=== PATIENT | male | born 1950 | race Caucasian/White ===

== ENCOUNTER 2018-07-10 09:06 | Outpatient (CLI) | payer BC ==
[2018-07-10 10:16] LABS: Hemoglobin 15.7 g/dL (14.0-18.0); Mean Corpuscular HGB CONC 33.6 g/dL (32.0-36.0); Mean Corpuscular Hemoglobin 30.8 pg (27.0-31.0); Mean Corpuscular Volume 91.6 fL (78.0-98.0); Mean Platelet Volume 8.6 fL (7.4-10.4); Platelet Count 134 thou/uL (130-400); RBC Distribution Width 12.3 % (11.5-14.5); Red Blood Cell (RBC) Count 5.11 mill/uL (4.70-6.10); White Blood Cell (WBC) Count 4.9 thou/uL (4.8-10.8)
[2018-07-10 11:05] LABS: Anion Gap 12 mmol/L (10-20); BUN (Urea Nitrogen) 17 mg/dL (8.4-25.7); Calc. Creatinine Clearance 0 mL/min (70-130); Calcium 9.9 mg/dL (7.8-10.44); Carbon Dioxide 24 mmol/L (23-31); Chloride 110 mmol/L (98-107); Estimated GFR-MDRD 66; Glucose 117 mg/dL (80-115); Potassium 4.7 mmol/L (3.5-5.1); Sodium 141 mmol/L (136-145)
== END 2018-07-10 09:07 | disposition home or self-care (01) ==
LOC: LABBT 09:06
PROVIDERS: ATTEND Orthopaedic Surgery
DX: Z01.812 Encounter for preprocedural laboratory examination (principal); M75.101 Unspecified rotator cuff tear or rupture of right shoulder, not specified as traumatic; M75.41 Impingement syndrome of right shoulder
CPT/HCPCS: 80048; 85027

== ENCOUNTER 2018-07-12 06:45 | Day surgery (SDC) | payer BC ==
[2018-07-10 09:25] VITALS: BMI 24.1
[2018-07-12] MEDS ORDERED: CEFAZOLIN/Water 2 GM/20 ML SYRINGE ONE (07:20)
[2018-07-12] MEDS ORDERED: Fentanyl 100 MCG/2 ML VIAL ONE ×2 (07:43→09:43)
[2018-07-12] MEDS ORDERED: Midazolam HCl 2 mg/2 ml Vial ONE (07:43)
[2018-07-12] MEDS ORDERED: Promethazine HCl 25 MG/ML VIAL IM PRN (07:54)
[2018-07-12] MEDS ORDERED: Ketorolac Tromethamine 30 MG/ML VIAL IVP PRN (07:54)
[2018-07-12] MEDS ORDERED: traMADol HCl 50 MG TAB PO PRN ×2 (07:54)
[2018-07-12] MEDS ORDERED: Ondansetron HCl/PF 4 MG/2 ML Vial IVP PRN (07:54)
[2018-07-12] MEDS ORDERED: HYDROcodone/Acetaminophen 10/325 mg Tablet PO PRN ×2 (07:54)
[2018-07-12] MEDS ORDERED: Zolpidem Tartrate 5 MG TAB PO PRN (07:54)
[2018-07-12] MEDS ORDERED: Ropivacaine 0.2% 550 ML 550 ML NERVE BLCK SCH (07:54)
[2018-07-12] MEDS ORDERED: Fentanyl 100 MCG/2 ML VIAL SLOW IVP PRN (07:55)
--- NOTE | 2018-07-12 12:10 | OP ---
DATE OF PROCEDURE: 07/12/2018. PREOPERATIVE DIAGNOSIS: Large rotator cuff tear of the right shoulder. POSTOPERATIVE DIAGNOSIS: Large rotator cuff tear of the right shoulder. PROCEDURE PERFORMED: Arthroscopy of the right shoulder with subacromial decompression and rotator cu ff repair. SURGEON: Charanjit Spencer M.D. ANESTHESIA: General. TECHNIQUE: The patient was given preoperative IV antibiotics, taken to the operating room and placed in supine position. Satisfactory general anesthesia was performed. The patient was then placed in the left lateral decubitus position. All bony prominences were well padded. The right upper extremi ty was placed in 15 pounds of traction. The right shoulder and upper extremity were sterilely preppe d and draped in the usual fashion. The shoulder was arthroscoped through the usual posterior and ant erior portals as well as the lateral and superior lateral portals. Upon entering the shoulder joint, the patient had some synovitis. Partial synovectomy was performed. The articular cartilage looked very good in the shoulder joint and over the humeral head and in the glenoid. The labrum was intact. The patient had a very large rotator cuff tear, subacromial space was easily entered. A subacromia l decompression was performed using a shaver, 90 degree arthrowand and a high speed bur. The abundan t synovial tissue was removed. The undersurface of the acromion was thinned down. The rotator cuff although large fortunately was mobile and was able to be repaired using a double roll technique using 4.75 PushLock anchors, two medially and two laterally and using FiberTape. This provided good repai r of the rotator cuff tear. During the procedure, all the debris was irrigated out of the shoulder j oint, the instruments were removed. The portals were closed with 3-0 Rapide. Sterile dressing was a pplied. The patient was taken out of traction and he was placed in a shoulder immobilizer. He was a wakened, extubated, and transferred to recovery room in stable condition. ESTIMATED BLOOD LOSS: 30 mL COMPLICATIONS: None. DISCHARGE MEDICATIONS: Tylenol #4 one every 4-6 hours as needed for pain, #40 with 1 refill. DISCHARGE FOLLOWUP: Follow up in my office in 1 week. DISCHARGE INSTRUCTIONS: The patient was instructed preoperatively to avoid any active range of motio n of the right shoulder.
[2018-07-12] MEDS ORDERED: Ropivacaine 0.2% HCl/PF (40 MG/20 ML VIAL) ONE (12:53)
[2018-07-12] MEDS ORDERED: Ropivacaine 0.5% HCl/PF (150 MG/30 ML VIAL) ONE (12:53)
[2018-07-12] MEDS ORDERED: Lidocaine 1% PF 5 ML VIAL ONE (13:59)
[2018-07-12] MEDS ORDERED: Ketorolac Tromethamine 30 MG/ML VIAL ONE (13:59)
[2018-07-12] MEDS ORDERED: Glycopyrrolate 0.2 MG/ML 5 ML SYRINGE ONE (13:59)
[2018-07-12] MEDS ORDERED: Ondansetron HCl/PF 4 MG/2 ML Vial ONE (13:59)
[2018-07-12] MEDS ORDERED: Dexamethasone 20 MG/5 ML VIAL ONE (13:59)
[2018-07-12] MEDS ORDERED: ePHEDrine/0.9% NaCl/PF SYRINGE 50 mg/10 ml ONE (13:59)
[2018-07-12] MEDS ORDERED: PROPOFOL 200 MG/20 ML VIAL ONE (13:59)
== END 2018-07-12 14:00 | disposition home or self-care (01) ==
LOC: SDC 06:45
PROVIDERS: ATTEND Orthopaedic Surgery
PROC: 0RNJ4ZZ Release Right Shoulder Joint, Percutaneous Endoscopic Approach (ICD-10-PCS; principal; 2018-07-12)
PROC: 0LQ14ZZ Repair Right Shoulder Tendon, Percutaneous Endoscopic Approach (ICD-10-PCS; principal; 2018-07-12)
DX: M75.101 Unspecified rotator cuff tear or rupture of right shoulder, not specified as traumatic (principal); M75.41 Impingement syndrome of right shoulder; M65.811 Other synovitis and tenosynovitis, right shoulder; I48.91 Unspecified atrial fibrillation; I10 Essential (primary) hypertension; E78.00 Pure hypercholesterolemia, unspecified; F17.200 Nicotine dependence, unspecified, uncomplicated; Z79.899 Other long term (current) drug therapy
CPT/HCPCS: A4306; C1713; J1100; J1885; J2001; J2250; J2405; J2704; J2795; J3010

== ENCOUNTER 2021-12-06 07:05 | Outpatient (CLI) | payer MEDICARE, OTHER ==
[2021-12-06 08:02] LABS: Bilirubin Neg (Negative); Blood, Urine Negative (Negative); Clarity Clear (Clear); Glucose, Urine (Dipstick) Normal (Negative); Ketone, Urine Negative (Negative); Leukocyte Negative (Negative); Nitrite Negative (Negative); Protein, Urine (Dipstick) Negative (Neg-Trace); Urobilinogen Normal mg/dL (Less than 2)
[2021-12-06 08:26] LABS: Bacteria/HPF None Seen HPF (None Seen); RBC/HPF None Seen HPF (0-3); Squamous Epithelial None Seen HPF (0-3); WBC/HPF None Seen HPF (0-3)
[2021-12-06 09:43] LABS: Mean Corpuscular HGB CONC 32.1 g/dL (32.0-36.0); Mean Corpuscular Hemoglobin 29.1 pg (27.0-33.0); Mean Corpuscular Volume 90.7 fl (81.2-95.1); Platelet Count 148 10x3/uL (150-450); RBC Distribution Width 14.1 % (11.5-14.5); Red Blood Cell (RBC) Count 5.16 10x6/uL (4.32-5.72); White Blood Cell (WBC) Count 9.7 10x3/uL (3.5-10.5)
[2021-12-06 10:15] LABS: Anion Gap 12 mmol/L (10-20); BUN (Urea Nitrogen) 27 mg/dL (8.4-25.7); Calc. Creatinine Clearance 0 mL/min (70-130); Carbon Dioxide 26 mmol/L (23-31); Chloride 106 mmol/L (98-107); Glucose 104 mg/dL (83-110); Potassium 5.4 mmol/L (3.5-5.1); Sodium 139 mmol/L (136-145)
[2021-12-06 10:19] LABS: INR-International Normal Ratio 0.9; PTT 29.2 sec (22.0-33.0); Prothrombin Time 9.9 sec (9.5-12.1)
[2021-12-06 18:22] LABS: SARS-CoV-2 PCR by NAA Not Detected (NotDetected)
== END 2021-12-06 07:06 | disposition home or self-care (01) ==
LOC: LABBT 07:05
PROVIDERS: ATTEND Urology
DX: Z01.818 Encounter for other preprocedural examination (principal); R97.20 Elevated prostate specific antigen [PSA]; R35.0 Frequency of micturition; I49.9 Cardiac arrhythmia, unspecified; Z20.822 Contact with and (suspected) exposure to COVID-19
CPT/HCPCS: 71046; 80048; 81001; 85027; 85610; 85730; 87086; 93005; U0003; U0005; 93010

== ENCOUNTER 2021-12-09 06:38 | Day surgery (SDC) | payer MEDICARE ==
[2021-12-02 13:21] VITALS: BMI 26.0
[2021-12-09] MEDS ORDERED: Propofol 500 MG/50 ML VIAL ONE (09:11)
[2021-12-09] MEDS ORDERED: cefTRIAXone\\ROCEPHIN 2 GM VIAL ONE (09:30)
[2021-12-09] MEDS ORDERED: Sodium Chloride 0.9% 100 ML ONE (09:31)
[2021-12-09] MEDS ORDERED: PHENYLEPHRINE-NS 100 MCG/ML 10 ML SYRINGE ONE (09:37)
[2021-12-09] MEDS ORDERED: Lidocaine 1% PF 5 ML VIAL ONE (09:37)
== END 2021-12-09 11:23 | disposition home or self-care (01) ==
LOC: SDC 06:38
PROVIDERS: ATTEND Urology
PROC: 0VB03ZX Excision of Prostate, Percutaneous Approach, Diagnostic (ICD-10-PCS; principal; 2021-12-09)
DX: R97.20 Elevated prostate specific antigen [PSA] (principal); R35.0 Frequency of micturition; I49.9 Cardiac arrhythmia, unspecified; I10 Essential (primary) hypertension; E78.00 Pure hypercholesterolemia, unspecified; Z80.42 Family history of malignant neoplasm of prostate; Z87.891 Personal history of nicotine dependence; Z79.82 Long term (current) use of aspirin; Z79.899 Other long term (current) drug therapy
CPT/HCPCS: G0416; J0696; J2704; J3490

== ENCOUNTER 2022-06-20 12:15 | Outpatient (CLI) | payer MEDICARE, OTHER ==
[~2022-06-20 12:15] MED LIST: Iopamidol 370 76% 100 ML VIAL ONE
== END 2022-06-20 12:16 | disposition home or self-care (01) ==
LOC: CT 12:15
PROVIDERS: ATTEND Internal Medicine Cardiovascular Disease
DX: I74.3 Embolism and thrombosis of arteries of the lower extremities (principal); I70.1 Atherosclerosis of renal artery; I82.431 Acute embolism and thrombosis of right popliteal vein; K76.89 Other specified diseases of liver; Q61.9 Cystic kidney disease, unspecified
CPT/HCPCS: 75635; Q9967

== ENCOUNTER 2022-06-29 08:15 | Outpatient (CLI) | payer MEDICARE ==
[2022-06-29] MEDS ORDERED: Magnevist 469MG/ML 20 ML VIAL ONE (09:47)
== END 2022-06-29 08:16 | disposition home or self-care (01) ==
LOC: TBSIIMAG 08:15
PROVIDERS: ATTEND Internal Medicine Cardiovascular Disease
DX: K76.89 Other specified diseases of liver (principal); D18.03 Hemangioma of intra-abdominal structures; D73.89 Other diseases of spleen; N28.1 Cyst of kidney, acquired
CPT/HCPCS: 74183; A9579

== ENCOUNTER 2025-05-28 08:00 | Inpatient (IN) | payer MEDICARE, OTHER ==
[2025-05-28 08:30] VITALS: BMI 24.1
[2025-05-28 09:18] LABS: #Basophils 0.06 10x3/uL (0.0-0.2); #Eosinophils 0.20 10x3/uL (0.0-0.7); #Monocytes 0.62 10x3/uL (0.11-0.59); #Neutrophils 4.27 10x3/uL (1.40-6.50); %Basophils 1.0 % (0.0-1.0); %Eosinophils 3.2 % (0.0-10.0); %Lymphocytes 16.5 % (21.0-51.0); %Monocytes 10.0 % (0.0-10.0); %Neutrophils 69.0 % (42.0-75.0); Hematocrit 44.5 % (42.0-52.0); Hemoglobin 14.3 g/dL (14.0-18.0); Mean Corpuscular Hemoglobin 28.7 pg (27.0-31.0); Mean Corpuscular Volume 89.2 fL (78.0-98.0); Platelet Count 185 10x3/uL (130-400); Red Blood Cell (RBC) Count 4.99 mill/uL (4.70-6.10); White Blood Cell (WBC) Count 6.19 10x3/uL (4.8-10.8)
[2025-05-28 09:37] LABS: ALT (SGPT) 31 U/L (Less than 45); AST (SGOT) 48 U/L (11-34); Albumin 3.9 g/dL (3.1-4.5); Alkaline Phosphatase 85 U/L (40-110); Anion Gap 14 mmol/L (10-20); BUN (Urea Nitrogen) 26 mg/dL (8.4-25.7); Bilirubin, Total 0.3 mg/dL (0.3-1.2); Calc. Creatinine Clearance 0 mL/min (70-130); Calcium 9.1 mg/dL (7.8-10.44); Carbon Dioxide 18 mmol/L (23-31); Chloride 110 mmol/L (98-107); Globulin 2.8 g/dL (2.4-3.5); Glucose 112 mg/dL (83-110); Potassium 5.0 mmol/L (3.5-5.1); Sodium 137 mmol/L (136-145)
[2025-05-28 09:39] LABS: INR-International Normal Ratio 2.1; PTT 46.7 sec (22.9-36.1); Prothrombin Time 24.0 sec (12.0-14.7)
[2025-06-04] MEDS ORDERED: Iopamidol 370 76% 100 ML VIAL ONE (12:59)
[2025-06-04] MEDS ORDERED: CEFAZOLIN 2 GM VIAL ONE (13:21)
[2025-06-04] MEDS ORDERED: Heparin 10,000 UNITS/ 10 ML VIAL ONE (13:21)
[2025-06-04] MEDS ORDERED: Rocuronium Bromide 10 MG/ML (10ML VIAL) ONE (14:54)
[2025-06-04] MEDS ORDERED: PROPOFOL 200 MG/20 ML VIAL ONE (15:04)
[2025-06-04] MEDS ORDERED: Ondansetron PF 4 MG/2 ML Vial ONE (15:04)
[2025-06-04] MEDS ORDERED: Lidocaine 1% PF 5 ML VIAL ONE (15:04)
[2025-06-04] MEDS ORDERED: SUGAMMADEX SODIUM 200 MG/2 ML VIAL ONE (16:22)
== END 2025-06-04 20:00 | disposition home or self-care (01) | DRG 274 ==
LOC: EDSTATUS 06-04 08:00 → SURG A 06-04 09:40
PROVIDERS: ADMIT Internal Medicine Cardiovascular Disease; ATTEND Internal Medicine Cardiovascular Disease
PROC: 02L73DK Occlusion of Left Atrial Appendage with Intraluminal Device, Percutaneous Approach (ICD-10-PCS; principal; 2025-06-04)
PROC: B24BZZ4 Ultrasonography of Heart with Aorta, Transesophageal (ICD-10-PCS; 2025-06-04)
DX: I48.19 Other persistent atrial fibrillation (principal); Z00.6 Encounter for examination for normal comparison and control in clinical research program; I10 Essential (primary) hypertension; E78.5 Hyperlipidemia, unspecified; F17.210 Nicotine dependence, cigarettes, uncomplicated; R06.83 Snoring; D64.9 Anemia, unspecified; J30.9 Allergic rhinitis, unspecified; F17.220 Nicotine dependence, chewing tobacco, uncomplicated; Z79.82 Long term (current) use of aspirin; Z79.02 Long term (current) use of antithrombotics/antiplatelets; Z98.890 Other specified postprocedural states; Z86.718 Personal history of other venous thrombosis and embolism
CPT/HCPCS: 33340; 80053; 85025; 85347; 85610; 85730; 86850; 86900; 86901; 93306; 93312; C1753; C1760; C1817; C1893; C1894; J1100; J1644; J2405; J2704; J2720; J3010; Q9967

== ENCOUNTER 2025-07-08 07:46 | Outpatient (CLI) | payer MEDICARE, OTHER ==
[2025-07-08 10:05] LABS: #Basophils 0.05 10x3/uL (0.0-0.2); #Eosinophils 0.31 10x3/uL (0.0-0.7); #Monocytes 0.81 10x3/uL (0.11-0.59); #Neutrophils 4.39 10x3/uL (1.40-6.50); %Basophils 0.8 % (0.0-1.0); %Eosinophils 4.7 % (0.0-10.0); %Lymphocytes 15.6 % (21.0-51.0); %Monocytes 12.2 % (0.0-10.0); %Neutrophils 65.9 % (42.0-75.0); Hematocrit 45.5 % (42.0-52.0); Hemoglobin 14.6 g/dL (14.0-18.0); Mean Corpuscular Hemoglobin 29.3 pg (27.0-31.0); Mean Corpuscular Volume 91.4 fL (78.0-98.0); Platelet Count 176 10x3/uL (130-400); Red Blood Cell (RBC) Count 4.98 mill/uL (4.70-6.10); White Blood Cell (WBC) Count 6.65 10x3/uL (4.8-10.8)
[2025-07-08 10:16] LABS: INR-International Normal Ratio 1.0; PTT 34.1 sec (22.9-36.1); Prothrombin Time 12.8 sec (12.0-14.7)
[2025-07-08 10:26] LABS: Anion Gap 14 mmol/L (10-20); BUN (Urea Nitrogen) 25 mg/dL (8.4-25.7); Calc. Creatinine Clearance 0 mL/min (70-130); Calcium 9.4 mg/dL (7.8-10.44); Carbon Dioxide 21 mmol/L (23-31); Chloride 112 mmol/L (98-107); Glucose 103 mg/dL (83-110); Potassium 5.0 mmol/L (3.5-5.1); Sodium 142 mmol/L (136-145)
== END 2025-07-08 07:47 | disposition home or self-care (01) ==
LOC: LABBT 07:46
PROVIDERS: ATTEND Internal Medicine Cardiovascular Disease
DX: Z01.812 Encounter for preprocedural laboratory examination (principal); I48.19 Other persistent atrial fibrillation; D64.9 Anemia, unspecified
CPT/HCPCS: 80048; 85025; 85610; 85730